=== PATIENT | female | born 1995 | race Hispanic/Latino ===

== ENCOUNTER 2018-01-28 16:55 | Emergency (ER) | payer MEDICAID ==
[2018-01-28] MEDS: NS 1,000 ML IV (17:45)
[2018-01-28 18:16] LABS: HEMATOCRIT 32.9 % (36.0-47.0); HEMOGLOBIN 11.2 g/dl (12.0-16.0); MEAN CORPUSCULAR VOLUME 85.2 fl (80.0-96.0); PLATELET COUNT, AUTOMATED 295 10^3/uL (150-450); RED BLOOD COUNT 3.86 10^6/uL (4.00-5.40); RED CELL DISTRIBUTION WIDTH 13.1 % (11.5-14.5); WHITE BLOOD COUNT 8.5 10^3/uL (4.0-10.0)
[2018-01-28 18:32] LABS: AMORPHOUS SEDIMENT RFX MODERATE (NEGATIVE); KETONE, URINE AUTO RFX NEGATIVE (NEGATIVE); LEUKOCYTE ESTERASE UR AUTO RFX NEGATIVE (NEGATIVE); MUCUS, URINE RFX SMALL (NEGATIVE); NITRITE, URINE AUTO RFX NEGATIVE (NEGATIVE); RBC, URINE AUTO RFX 1 /HPF (0-3); SPECIFIC GRAVITY UR AUTO RFX 1.019 (1.002-1.035); SQUAM EPITHELIAL CELL UR AURFX 9 /HPF (0-6); WBC, URINE AUTO RFX 2 /HPF (0-3)
[2018-01-28 19:11] LABS: HCG, SERUM QUANTITATIVE 58789 MIU/ML
== END 2018-01-28 21:11 | disposition home or self-care (01) ==
LOC: M ED 16:55
DX: O23.42 Unspecified infection of urinary tract in pregnancy, second trimester (principal); Z3A.15 15 weeks gestation of pregnancy
CPT/HCPCS: 76811

== ENCOUNTER → 2018-02-16 | Outpatient (CLI) | payer MEDICAID | LOC: M SMT 13:57 | DX: Z31.438 Encounter for other genetic testing of female for procreative management (principal) | CPT/HCPCS: 36415 ==

== ENCOUNTER → 2018-02-22 | Outpatient (CLI) | payer MEDICAID ==
[2018-02-22 13:29] LABS: BASO % 0.5 % (0.0-1.0); EOS # 0.1 10^3/uL (0.0-0.50); EOS % 0.7 % (0.0-3.0); HEMATOCRIT 30.9 % (36.0-47.0); HEMOGLOBIN 10.2 g/dl (12.0-16.0); IMMATURE GRANULOCYTE % 0.1 % (0-3.0); LYMPH # 1.7 10^3/uL (1.5-6.5); LYMPH % 22.6 % (24.0-44.0); MEAN CORPUSCULAR HEMOGLOBIN 29.4 pg (27.0-33.0); MONO # 0.4 10^3/uL (0.0-0.8); MONO % 5.8 % (0.0-5.0); NEUTROPHILS # 5.3 10^3/uL (1.8-7.7); NEUTROPHILS % 70.3 % (36.0-66.0); PLATELET COUNT, AUTOMATED 214 10^3/uL (150-450); RED BLOOD COUNT 3.47 10^6/uL (4.00-5.40); RED CELL DISTRIBUTION WIDTH 14.2 % (11.5-14.5); WHITE BLOOD COUNT 7.6 10^3/uL (4.0-10.0)
[2018-02-22 15:43] LABS: CHLAMYDIA DNA AMPLIFICATION NEGATIVE (NEGATIVE); GC DNA AMPLIFICATION NEGATIVE (NEGATIVE)
[2018-02-23 10:36] LABS: HBsAg Prenatal NEGATIVE (NEGATIVE)
[2018-02-23 10:38] LABS: RUBELLA IgG QUALITATIVE IMMUNE (IMMUNE)
[2018-02-23 10:57] LABS: HEPATITIS C VIRUS ABY INDEX < 0.0 INDEX (<0.8)
[2018-02-23 11:19] LABS: HIV 1&2 SCREEN CENTAUR NEGATIVE (NEGATIVE)
== END ==
LOC: M RAD 13:11
DX: Z36.9 Encounter for antenatal screening, unspecified (principal); Z3A.19 19 weeks gestation of pregnancy
CPT/HCPCS: 76816

== ENCOUNTER → 2018-03-18 | Outpatient (CLI) | payer SELFPAY, OTHER | LOC: M RAD 17:33 | DX: Z36.89 Encounter for other specified antenatal screening (principal); O32.1XX1 Maternal care for breech presentation, fetus 1; Z3A.22 22 weeks gestation of pregnancy | CPT/HCPCS: 76816 ==

== ENCOUNTER → 2018-04-14 | Outpatient (CLI) | payer OTHER ==
[2018-04-14 18:36] LABS: BASO % 0.5 % (0.0-1.0); EOS # 0.1 10^3/uL (0.0-0.50); EOS % 0.9 % (0.0-3.0); HEMATOCRIT 33.6 % (36.0-47.0); HEMOGLOBIN 10.8 g/dl (12.0-15.5); IMMATURE GRANULOCYTE % 0.3 % (0-3.0); LYMPH # 2.2 10^3/uL (1.5-6.5); LYMPH % 27.1 % (24.0-44.0); MEAN CORPUSCULAR HEMOGLOBIN 28.7 pg (27.0-33.0); MEAN CORPUSCULAR HGB CONC 32.1 g/dl (32.0-36.5); MEAN CORPUSCULAR VOLUME 89.4 fl (80.0-96.0); MONO # 0.7 10^3/uL (0.0-0.8); MONO % 8.1 % (0.0-5.0); NEUTROPHILS # 5.1 10^3/uL (1.8-7.7); NEUTROPHILS % 63.1 % (36.0-66.0); PLATELET COUNT, AUTOMATED 264 10^3/uL (150-450); RED BLOOD COUNT 3.76 10^6/uL (4.00-5.40); RED CELL DISTRIBUTION WIDTH 13.2 % (11.5-14.5)
[2018-04-14 18:43] LABS: GLUCOSE CHALLENGE TEST 1 HOUR 104 MG/DL (LESS THAN 140)
== END ==
LOC: M SMT 13:25
DX: Z34.82 Encounter for supervision of other normal pregnancy, second trimester (principal)
CPT/HCPCS: 82950

== ENCOUNTER → 2018-06-22 | Outpatient (REF) | payer OTHER | LOC: M LAB REF 16:57 | DX: Z34.83 Encounter for supervision of other normal pregnancy, third trimester (principal); Z3A.00 Weeks of gestation of pregnancy not specified | CPT/HCPCS: 87081 ==

== ENCOUNTER 2018-08-06 16:03 | Emergency (ER) | payer OTHER | END 2018-08-06 17:19 | disposition home or self-care (01) | LOC: M ED 16:03 | DX: N76.0 Acute vaginitis (principal); L25.9 Unspecified contact dermatitis, unspecified cause | CPT/HCPCS: 99282 ==

== ENCOUNTER → 2018-10-12 | Outpatient (REF) | payer OTHER | LOC: M LAB REF 17:16 | DX: R30.0 Dysuria (principal) ==

== ENCOUNTER → 2018-10-13 | Outpatient (CLI) | payer OTHER | LOC: M RAD 17:00 | DX: R31.9 Hematuria, unspecified (principal) | CPT/HCPCS: 76775 ==

== ENCOUNTER 2018-10-27 11:39 | Emergency (ER) | payer OTHER ==
[2018-10-27 12:15] LABS: KETONE, URINE AUTO RFX TRACE mg/dL (NEGATIVE); LEUKOCYTE ESTERASE UR AUTO RFX NEGATIVE (NEGATIVE); MUCUS, URINE RFX LARGE (NEGATIVE); NITRITE, URINE AUTO RFX NEGATIVE (NEGATIVE); RBC, URINE AUTO RFX 1 /HPF (0-3); SPECIFIC GRAVITY UR AUTO RFX 1.034 (1.002-1.035); SQUAM EPITHELIAL CELL UR AURFX 2 /HPF (0-6); WBC, URINE AUTO RFX 10 /HPF (0-3)
== END 2018-10-27 13:31 | disposition home or self-care (01) ==
LOC: M ED 11:39
DX: R30.0 Dysuria (principal)
CPT/HCPCS: 81001

== ENCOUNTER 2019-06-05 16:21 | Emergency (ER) | payer OTHER ==
[~2019-06-05] VITALS: Ht 160 cm; Wt 50.9 kg
[~2019-06-05 16:21] MED LIST: HYDR-3715 PO; IBUP-1114 PO; IBUP80TA PO; MACR100C43 PO; OXYC1TAB23 PO; PERCOCET PO; PREN1TAB11 PO; PYRI1TAB5 PO
[2019-06-05 18:22] LABS: APPEARANCE, URINE CLOUDY (CLEAR); BACTERIA, URINE AUTO 1+ (NEGATIVE); BILIRUBIN, URINE AUTO NEGATIVE (NEGATIVE); BLOOD, URINE BLOOD NEGATIVE (NEGATIVE); COLOR, URINE YELLOW (YELLOW); GLUCOSE, URINE (UA) AUTO NEGATIVE (NEGATIVE); KETONE, URINE AUTO NEGATIVE (NEGATIVE); LEUKOCYTE ESTERASE, URINE AUTO 2+ (NEGATIVE); MUCUS, URINE LARGE (NEGATIVE); NITRITE, URINE AUTO NEGATIVE (NEGATIVE); PROTEIN, URINE AUTO NEGATIVE (NEGATIVE); RBC, URINE AUTO 3 /HPF (0-3); SPECIFIC GRAVITY URINE AUTO 1.023 (1.002-1.035); SQUAMOUS EPITHELIAL CELL UR AU 26 /HPF (0-6); UROBILINOGEN, URINE AUTO 0.2 mg/dL (0.0-2.0); WBC, URINE AUTO 2 /HPF (0-3)
[2019-06-05] MEDS ORDERED: TERC0.4C2 PV (18:42)
[2019-06-05] MEDS ORDERED: MACR100C43 PO (18:53)
[2019-06-05 18:56] VITALS: BP 108/55
== END 2019-06-05 18:57 | disposition home or self-care (01) ==
LOC: M ED 16:21
DX: N39.0 Urinary tract infection, site not specified (principal); B37.3 Candidiasis of vulva and vagina; Z86.19 Personal history of other infectious and parasitic diseases

== ENCOUNTER → 2023-02-25 | Outpatient (CLI) | payer MEDICAID, OTHER ==
[~2023-02-25] MED LIST changes: +TERC0.4C10 PV
[2023-02-25 13:46] LABS: HEMATOCRIT 35.5 % (36.0-47.0); HEMOGLOBIN 11.9 g/dl (12.0-15.5); MEAN CORPUSCULAR HEMOGLOBIN 28.8 pg (27.0-33.0); MEAN CORPUSCULAR HGB CONC 33.5 g/dl (32.0-36.5); PLATELET COUNT, AUTOMATED 236 10^3/uL (150-450); RED BLOOD COUNT 4.13 10^6/uL (4.00-5.40); WHITE BLOOD COUNT 7.6 10^3/uL (4.0-10.0)
[2023-02-25 14:14] LABS: HIV 1&2 SCREEN CENTAUR NEGATIVE (NEGATIVE)
[2023-02-25 14:22] LABS: HEPATITIS C VIRUS ABY INDEX 0.1 INDEX (<0.8)
[2023-02-25 16:03] LABS: GC DNA AMPLIFICATION NEGATIVE (NEGATIVE)
== END ==
LOC: M PLALAB 10:19
PROVIDERS: ATTEND Advanced Practice Midwife
DX: Z34.81 Encounter for supervision of other normal pregnancy, first trimester (principal)

== ENCOUNTER → 2023-05-12 | Outpatient (CLI) | payer OTHER | LOC: M WHC 13:39 | PROVIDERS: ATTEND Obstetrics & Gynecology | DX: Z34.92 Encounter for supervision of normal pregnancy, unspecified, second trimester (principal); Z3A.23 23 weeks gestation of pregnancy ==

== ENCOUNTER → 2023-07-16 | Outpatient (CLI) | payer OTHER ==
[2023-07-16 17:28] LABS: HEMATOCRIT 33.3 % (36.0-47.0); HEMOGLOBIN 10.4 g/dl (12.0-15.5); MEAN CORPUSCULAR HEMOGLOBIN 26.3 pg (27.0-33.0); MEAN CORPUSCULAR HGB CONC 31.2 g/dl (32.0-36.5); MEAN CORPUSCULAR VOLUME 84.3 fl (80.0-96.0); PLATELET COUNT, AUTOMATED 216 10^3/uL (150-450); RED BLOOD COUNT 3.95 10^6/uL (4.00-5.40); WHITE BLOOD COUNT 7.2 10^3/uL (4.0-10.0)
[2023-07-16 18:51] LABS: GC DNA AMPLIFICATION NEGATIVE (NEGATIVE)
== END ==
LOC: M PLALAB 14:04
PROVIDERS: ATTEND Obstetrics & Gynecology
DX: O34.219 Maternal care for unspecified type scar from previous cesarean delivery (principal); Z3A.00 Weeks of gestation of pregnancy not specified

== ENCOUNTER → 2023-08-13 | Outpatient (REF) | payer OTHER | LOC: M SFHCWAGY 16:54 | PROVIDERS: ATTEND Specialist | DX: Z36.85 Encounter for antenatal screening for Streptococcus B (principal) ==

== ENCOUNTER 2023-09-07 12:40 | Inpatient (IN) | payer OTHER ==
[2023-09-07] VITALS (22 sets, daily range): BP systolic 95–142; BP diastolic 50–92
[~2023-09-07] VITALS: Ht 160 cm; Wt 69.0 kg
[2023-09-07] MEDS ORDERED: HOME MED LIST COMPLETE! XX SCH (13:00)
[2023-09-07] MEDS ORDERED: METHYLERGONOVINE MALEATE 0.2MG/ML 1ML VIAL IM PRN (14:50)
[2023-09-07] MEDS ORDERED: OXYTOCIN DRIP 30 UNITS in IV 1 EA IV PRN (14:50)
[2023-09-07] MEDS ORDERED: TRANEXAMIC ACID INJection 1,000 MG in NS 100 ML IV PRN (14:50)
[2023-09-07] MEDS ORDERED: LR 1,000 ML IV SCH (14:50)
[2023-09-07] MEDS ORDERED: LIDOCAINE 1% MDV 20ML VIAL INFIL PRN (14:50)
[2023-09-07 15:05] LABS: HEMATOCRIT 36.9 % (36.0-47.0); HEMOGLOBIN 11.5 g/dl (12.0-15.5); MEAN CORPUSCULAR HEMOGLOBIN 25.2 pg (27.0-33.0); MEAN CORPUSCULAR HGB CONC 31.2 g/dl (32.0-36.5); MEAN CORPUSCULAR VOLUME 80.9 fl (80.0-96.0); PLATELET COUNT, AUTOMATED 227 10^3/uL (150-450); RED BLOOD COUNT 4.56 10^6/uL (4.00-5.40); WHITE BLOOD COUNT 8.9 10^3/uL (4.0-10.0)
[2023-09-07] MEDS ORDERED: diphenhydrAMINE 50MG/ML VIAL IV PRN (15:10)
[2023-09-07] MEDS ORDERED: ONDANSETRON 4MG 2ML VIAL IV PRN (15:10)
[2023-09-07] MEDS ORDERED: ePHEDrine SULFATE 25 MG/5 ML(5MG/ML) SYRINGE IVP PRN (15:10)
[2023-09-07] MEDS ORDERED: EPIDURAL/PCA KEYS XX PRN (15:10)
[2023-09-07] MEDS ORDERED: LR 500 ML IV PRN (15:10)
[2023-09-07] MEDS ORDERED: FENTANYL/ROPIVACAINE/NACL BAG 100 ML EPIDURAL SCH (15:10)
[2023-09-07] MEDS ORDERED: NALOXONE INJ 0.4MG/1ML VIAL IV PRN (15:10)
[2023-09-07] MEDS ORDERED: LR 1,000 ML IV ONE (16:05)
[2023-09-07] MEDS ORDERED: ACETAMINOPHEN 500 MG TAB PO PRN (18:35)
[2023-09-07] MEDS ORDERED: OXYTOCIN DRIP 30 UNITS in IV 1 EA IV SCH (18:35)
[2023-09-07] MEDS ORDERED: METHYLERGONOVINE MALEATE 0.2 MG TAB PO PRN (18:35)
[2023-09-07] MEDS ORDERED: RHOGAM 300MCG (1500IU) INJ IM SCH (18:35)
[2023-09-07] MEDS ORDERED: MOM 30ML SUSPENSION UDC PO PRN (18:35)
[2023-09-07] MEDS ORDERED: ACETAMINOPHEN TAB 650MG DOSE (2X325MG) PO PRN (18:35)
[2023-09-07] MEDS ORDERED: IBUPROFEN 600MG TAB PO PRN (18:35)
[2023-09-07] MEDS ORDERED: DIBUCAINE 1% OINTMENT 30GM TOP PRN (18:35)
[2023-09-07] MEDS ORDERED: DOCUSATE SODIUM 100MG CAPSULE PO PRN (18:35)
[2023-09-07] MEDS ORDERED: ANUSOL HC CREAM 30GM TOP PRN (18:35)
[2023-09-07] MEDS: IBUPROFEN 800 MG TAB PO PRN (21:23)
[2023-09-08 06:00] VITALS: BP 125/84
[2023-09-08] MEDS: IBUPROFEN 800 MG TAB PO PRN (06:25)
[2023-09-08] MEDS ORDERED: PRENATAL VITAMINS CHEWABLE TABLET PO SCH (09:00)
[2023-09-09] MEDS ORDERED: MEASLES,MUMPS,RUBELLA VACCINE INJ (MMR-II) SC.IMMUN ONE (09:00)
== END 2023-09-08 18:40 | disposition home or self-care (01) | DRG 560 ==
LOC: M LDO 12:40 → UNDOADMIN 12:42 → M LDI 12:42 → M OBS 21:54
PROVIDERS: ADMIT Obstetrics & Gynecology; ATTEND Obstetrics & Gynecology
PROC: 10E0XZZ Delivery of Products of Conception, External Approach (ICD-10-PCS; principal; 2023-09-07)
DX: O34.211 Maternal care for low transverse scar from previous cesarean delivery (principal); Z37.0 Single live birth; Z3A.39 39 weeks gestation of pregnancy

== ENCOUNTER → 2023-12-27 | Outpatient (REF) | payer OTHER, MEDICAID | LOC: M SFHCWAGY 18:40 | PROVIDERS: ATTEND Obstetrics & Gynecology | DX: Z01.419 Encounter for gynecological examination (general) (routine) without abnormal findings (principal) ==

== ENCOUNTER → 2025-06-27 | Outpatient (REF) | payer OTHER ==
[2025-06-29 14:08] LABS: HPV APTIMA Detected (Not Detected)
== END ==
LOC: M PLALAB 12:45
PROVIDERS: ATTEND Obstetrics & Gynecology
DX: Z12.4 Encounter for screening for malignant neoplasm of cervix (principal); R87.612 Low grade squamous intraepithelial lesion on cytologic smear of cervix (LGSIL)

== ENCOUNTER → 2025-11-13 | Outpatient (REF) | payer OTHER | LOC: M PLALAB 16:36 | PROVIDERS: ATTEND Obstetrics & Gynecology | DX: R87.612 Low grade squamous intraepithelial lesion on cytologic smear of cervix (LGSIL) (principal) ==